=== PATIENT | male | born 1960 | race Caucasian/White ===

== ENCOUNTER 2022-12-05 08:57 | Day surgery (SDC) | payer OTHER, SELFPAY ==
[2022-10-24 14:43] VITALS: BMI 25.6
[2022-11-24 10:47] VITALS: BMI 24.3
--- NOTE | 2022-12-02 15:08 | PM.HPGS ---
History of Present Illness History of Present Illness Consent: Risks, benefits, and alternatives have been discussed and questions answered. Patient agrees to proceed with procedure. Chief complaint: History of Colon Polyps Narrative: Milton Osborn is a 62 year old male referred for colon cancer screening he had a colonoscopy with removal of a tubular adenoma 5 years ago. Review of Systems Review of Systems: All systems reviewed & are unremarkable except as noted in HPI and below PMFSH Past Medical History Medical History Hx of chronic prostatitis Family History Family History Mother Patient's mother is in good health Family history of malignant neoplasm of ovary Father Carcinoma of colon Malignant neoplasm of prostate Sibling Family history of attention deficit hyperactivity disorder (ADHD) Social History Social History Smoking status: Never smoker Alcohol intake: former Substance use: never Substance use type: does not use Living arrangements: with family Spiritual care concerns: No Meds Home Medications and Allergies Home Medications Medication Instructions Recorded Confirmed Type mirabegron 50 mg tablet,extended 50 mg PO DAILY 11/24/22 12/05/22 History release 24 hr (Myrbetriq) tamsulosin 0.4 mg capsule 0.4 mg PO DAILY 11/24/22 12/05/22 History Allergies Allergy/AdvReac Type Severity Reaction Status Date / Time Penicillins Allergy Unknown Hives Verified 12/05/22 09:55 Exam Resp: Auscultation: clear to auscultation bilaterally Cardio: Rate: regular rate Rhythm: regular rhythm GI: GI Palp: Yes Soft to palpation and No Tenderness to palpation present (GI) Assessment and Plan Assessment and plan (1) Colon cancer screening: Code(s): Z12.11 - Encounter for screening for malignant neoplasm of colon Status: Acute Assessment and Plan: Colonoscopy with possible biopsy or polypectomy or cautery or injection of substances.
--- NOTE | 2022-12-05 07:51 | P.PNAN_ITS ---
Anes - Initial Pre Proc Eval Procedure: Operation Date: 12/05/22 11:30 Proposed Procedures p Diagnostic Colonoscopy - Jeevan Rasmussen MD Date/Time: 12/05/22 07:51 Surgeon: Jeevan Rasmussen MD Pre Op Diagnosis: History of Colon Polyps Patient Data Age: 62 Gender: M Height: 1.88 m Weight: 86 kg Allergies Allergy/AdvReac Type Severity Reaction Status Date / Time Penicillins Allergy Unknown Hives Verified 12/05/22 09:55 Home Medications Medication Instructions Recorded Confirmed Type mirabegron 50 mg tablet,extended 50 mg PO DAILY 11/24/22 12/05/22 History release 24 hr (Myrbetriq) tamsulosin 0.4 mg capsule 0.4 mg PO DAILY 11/24/22 12/05/22 History Patient hx anesthesia problems: none Family hx anesthesia problems: none Results Review: All pre-operative results and documents have been reviewed as part of the pre- operative evaluation. PMFSH Past Medical History Medical History Hx of chronic prostatitis Family History Family History Mother Patient's mother is in good health Family history of malignant neoplasm of ovary Father Carcinoma of colon Malignant neoplasm of prostate Sibling Family history of attention deficit hyperactivity disorder (ADHD) Social History Social History Smoking status: Never smoker Alcohol intake: former Substance use: never Substance use type: does not use Living arrangements: with family Spiritual care concerns: No Anes - Eval Final PreProcedure Day of Procedure 12/05/22 07:51 Patient weight: normal Heart: regular rate and rhythm Lungs: clear to auscultation and normal air movement Airway: Mallampati scale class II Neurological: alert and oriented Last oral intake: >/= 8 hours ASA classification: II Emergent: no Anesthetic plan: proceed Anesthesia type and monitoring: general GIVS and standard monitoring Results Review: All pre-operative results and documents have been reviewed as part of the pre- operative evaluation. Informed Consent: The patient's anesthetic plan and its attendant risks and benefits were discussed with the patient/family/POA. Questions were solicited and answers provided to the satisfaction of the patient/family/POA.
[2022-12-05 09:50] VITALS: BP 144/82; PULSE 78; RESP 20; TEMP 37.1; O2SAT 99
[2022-12-05] MEDS: LACTATED RINGERS 1,000 ML 150 ML IV CONT (10:10)
[2022-12-05 11:26] VITALS: BP 144/82; PULSE 81; RESP 15; O2SAT 99
[2022-12-05 11:36] VITALS: BP 98/76; PULSE 80; RESP 15; O2SAT 97
[2022-12-05 11:46] VITALS: BP 112/70; PULSE 67; RESP 16; O2SAT 98
--- NOTE | 2022-12-05 12:06 | WPDANESPN ---
Anes - Prog Note Post-Op Date/Time: 12/05/22 12:06 Cardiovascular status: normal Respiratory status: normal Airway patency: baseline Mental status: baseline Post-Op hydration status: normal Vital Signs: Last Vital Signs Temp 37.1 C 12/05/22 09:50 Pulse 67 12/05/22 11:46 Resp 16 12/05/22 11:46 BP 112/70 12/05/22 11:46 Pulse Ox 98 12/05/22 11:46 O2 Del Method Room Air 12/05/22 11:46 Pain Score (VAS): 0 I/O: Intake & Output 12/04/22 12/05/22 12/05/22 23:59 07:59 15:59 Intake Total 500 Balance 500 Post-procedural complaints: none Patient Feedback: Patient satisfied with anesthetic care. Other Findings: Patient vital signs back to baseline. Patient denies nausea and vomiting. Patient's pain under control. Patient OK for discharge.
--- NOTE | 2022-12-05 12:14 | WPDANESPN ---
Anes - Prog Note Post-Op Date/Time: 12/05/22 12:14 Cardiovascular status: normal Respiratory status: normal Airway patency: baseline Mental status: baseline Post-Op hydration status: normal Vital Signs: Last Vital Signs Temp 37.1 C 12/05/22 09:50 Pulse 67 12/05/22 11:46 Resp 16 12/05/22 11:46 BP 112/70 12/05/22 11:46 Pulse Ox 98 12/05/22 11:46 O2 Del Method Room Air 12/05/22 11:46 Pain Score (VAS): 0 I/O: Intake & Output 12/04/22 12/05/22 12/05/22 23:59 07:59 15:59 Intake Total 500 Balance 500 Post-procedural complaints: none Patient Feedback: Patient satisfied with anesthetic care. Other Findings: Patient vital signs back to baseline. Patient denies nausea and vomiting. Patient's pain under control. Patient OK for discharge.
== END 2022-12-05 12:10 | disposition home or self-care (01) ==
PROVIDERS: PCP Family Medicine; Visit Provider Internal Medicine Gastroenterology
PROC: 0DJD8ZZ Inspection of Lower Intestinal Tract, Via Natural or Artificial Opening Endoscopic (ICD-10-PCS; CPT 45378; principal; 2022-12-05 11:30)
DX: Z12.11 Encounter for screening for malignant neoplasm of colon (principal)
CPT/HCPCS: 45385

== ENCOUNTER 2022-12-05 10:10 | Outpatient (NON) | payer OTHER, SELFPAY | END 2022-12-05 10:11 | disposition home or self-care (01) | PROVIDERS: PCP Family Medicine; Visit Provider Internal Medicine Gastroenterology | DX: Z12.11 Encounter for screening for malignant neoplasm of colon (principal) | CPT/HCPCS: 88305 ==

== ENCOUNTER 2023-07-07 11:49 | Emergency (ER) | payer OTHER, SELFPAY ==
--- NOTE | ~2023-07-07 | XR_ITS ---
Right Hand Technique: PA, oblique, and lateral views were obtained. Clinical History: Thumb injury Findings: No acute fracture or dislocation is seen. There are mild to moderate degenerative changes t hroughout the interphalangeal joints of the hand, as well as at the second MCP joint, first MCP joint .. Soft tissues are unremarkable. Impression: Scattered osteoarthritic changes, as detailed above. No fracture or dislocation. Reviewed, dictated and finalized at location M. Impression: Scattered osteoarthritic changes, as detailed above. No fracture or dislocation.
[2023-07-07 11:56] VITALS: BP 139/78; PULSE 107; RESP 20; TEMP 36.7; O2SAT 96
[2023-07-07] MEDS: TETANUS,DIPHTHERIA,AC PERTUSSIS ADULT (0.5 ML) BOOSTRIX IM (13:32)
--- NOTE | 2023-07-07 14:46 | PC.NURSE ---
lac tray at bedside.
--- NOTE | 2023-07-07 16:01 | ED.GENADULT ---
HPI - General Adult General Chief complaint: Wound/Laceration Stated complaint: first digit laceration Time Seen by Provider: 07/07/23 13:03 History of Present Illness HPI narrative: Milton Osborn is a 62 y/o male who presents with reports of trying to open a package with a sharp knife and sliced his left thumb at around 1130, he is not sure when his last TDap was, he reports it was bleeding quite a bit so he decided to get it checked out, although denies having much pain. Related Data Home Medications Medication Instructions Recorded Confirmed mirabegron 50 mg tablet,extended 50 mg PO DAILY 11/24/22 12/05/22 release 24 hr (Myrbetriq) tamsulosin 0.4 mg capsule 0.4 mg PO DAILY 11/24/22 12/05/22 Allergies Allergy/AdvReac Type Severity Reaction Status Date / Time Penicillins Allergy Unknown Hives Verified 07/07/23 12:39 Review of Systems Review of Systems: CONSTITUTIONAL: Denies fever, chills, or sweats. EYES: Denies visual changes, redness, or discharge. ENT: Denies rhinorrhea, congestion, sore throat, or otalgia. CARDIOVASCULAR: Denies chest pain, palpitations, or edema. RESPIRATORY: Denies cough or dyspnea. GASTROINTESTINAL: Denies abdominal pain, nausea, vomiting, or diarrhea. GENITOURINARY: Denies dysuria or hematuria. SKIN: Denies rash or itching. MUSCULOSKELETAL: Denies back pain, complains of left laceration to the tip of his left thumb NEUROLOGIC: Denies headache, numbness, dizziness, or weakness. PSYCHIATRIC: Denies anxiety or depression. FORMERLY [facility], 1928–1983 Past Medical History Medical History Hx of chronic prostatitis Family History Family History Mother Patient's mother is in good health Family history of malignant neoplasm of ovary Father Carcinoma of colon Malignant neoplasm of prostate Sibling Family history of attention deficit hyperactivity disorder (ADHD) Social History Social History Smoking status: Never smoker Alcohol intake: former Substance use: never Substance use type: does not use Living arrangements: with family Spiritual care concerns: No Exam Narrative: GENERAL: Well-appearing, well-nourished, and in no acute distress. HEAD: Normocephalic, atraumatic. EYES: PERRLA and EOMI. ENT: Nares clear, no rhinorrhea or epistaxis. Mucous membranes moist. Oropharynx without tonsillar hypertrophy exudate or other lesions. NECK: Supple. No adenopathy or masses. No carotid bruits or JVD CHEST: Clear to auscultation. No respiratory distress. No wheezes rales or rhonchi HEART: Regular rate and rhythm. No murmur heard. Normal peripheral pulses. ABDOMEN: Soft, nontender, nondistended, normal active bowel sounds. EXTREMITIES: Normal range of motion. No edema. laceration to the tip of his left thumb SKIN: Warm, dry, no rash. NEURO: No focal deficits. Alert and oriented x3. PSYCH: Normal mood and affect. Course Vital Signs Vital signs: Vital Signs Temperature 36.7 C 07/07/23 11:56 Pulse Rate 107 H 07/07/23 11:56 Respiratory Rate 20 07/07/23 11:56 Blood Pressure 139/78 07/07/23 11:56 Pulse Oximetry 96 07/07/23 11:56 Oxygen Delivery Room Air 07/07/23 11:56 Temperature 36.7 C 07/07/23 11:56 Pulse Rate 107 H 07/07/23 11:56 Respiratory Rate 20 07/07/23 11:56 Blood Pressure 139/78 07/07/23 11:56 Pulse Oximetry 96 07/07/23 11:56 Oxygen Delivery Room Air 07/07/23 11:56 Procedures Laceration Laceration 1: Date: 07/07/23 Time: 15:45 Site: hand Side (If applicable): right Size (cm): 1.5 Description: linear Depth: simple, single layer Local Anesthetic: lidocaine 2% and with epi Pre-repair: wound explored, irrigated and irrigated extensively ====== Skin Level ====== Skin layer closed with: nylon S
== END 2023-07-07 16:24 | disposition home or self-care (01) ==
PROVIDERS: Emergency Provider Nurse Practitioner Family; PCP Family Medicine
DX: S61.112A Laceration without foreign body of left thumb with damage to nail, initial encounter (principal); W26.0XXA Contact with knife, initial encounter; Z23 Encounter for immunization
CPT/HCPCS: 12001; 73130; 90471; 90715; 99283